=== PATIENT | female | born 1975 | race Two or more races ===

== ENCOUNTER 2018-03-07 10:29 | Emergency (ER) | payer MEDICAID ==
[2018-03-07 10:42] VITALS: BP 118/84
--- NOTE | 2018-03-07 10:49 | EDPHY ---
H & P Stated Complaint: Slipped in bathroom;hit head on wall; no LOC, noticed lac Time Seen by Provider: 03/07/18 10:49 HPI/ROS: CHIEF COMPLAINT: Scalp laceration HISTORY OF PRESENT ILLNESS: The patient presents the ED with complaints of a scalp laceration after she slipped and fell in the shower earlier today. The patient denies significant headache or neck pain. 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 She is not anticoagulated. The patient denies any neck pain, back pain, chest pain or difficulty breathing. She denies any antecedent palpitations. She has no acute neurologic complaints. REVIEW OF SYSTEMS: A comprehensive 10 point review of systems is otherwise negative aside from elements mentioned in the history of present illness. 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 - Social History Smoking Status: Never smoked - Physical Exam Exam: General Appearance: Alert, no distress Head: 3 cm scalp laceration noted, no galea involvement, no significant hematoma Eyes: Pupils equal, round, reactive ENT, Mouth: No hemotympanum, no oral trauma Neck: Nontender, trachea midline Respiratory: Clear to auscultation bilaterally Cardiovascular: Regular rate and rhythm Abdomen: Abdomen is soft and nontender, pelvis stable Skin: No lacerations, No abrasion Back: No midline T/L/S pain Extremities: Nontender, full range of motion Neurological: A&Ox3, normal motor function, normal sensory exam, GCS 15 Constitutional: Initial Vital Signs Temperature (C) 36.5 C 03/07/18 10:35 Heart Rate 84 03/07/18 10:35 Respiratory Rate 18 03/07/18 10:35 Blood Pressure 118/84 H 03/07/18 10:35 O2 Sat (%) 99 03/07/18 10:35 O2 Delivery Mode Room Air Allergies/Adverse Reactions: No Known Allergies Allergy (Unverified 03/07/18 10:42) Home Medications: Medication Instructions Recorded Amoxicillin Trihydrate 500 mg PO TID 03/07/18 [Amoxicillin] predniSONE 5 mg PO 03/07/18 Medical Decision Making Procedures: Procedure: Laceration repair. Verbal consent was obtained from the patient. The 3 cm laceration on the scalp was anesthetized using lidocaine with epinephrine. The wound was irrigated per protocol, draped and explored to its base with a gloved finger. The wound was repaired with zeinab. The wound repair was simple. The procedure was performed by myself. ED Course/Re-evaluation: The patient presents to the ED with a simple scalp laceration. There is no evidence of a closed head injury or concussion. The patient's laceration was closed with zeinab. She will be return to the ED in 10 days for staple removal. She is discharged home with customary aftercare instructions and return precautions. Departure - Departure Disposition: Home, Routine, Self-Care Clinical Impression: Scalp laceration Condition: Good Instructions: Care For Your Stitches (ED) Additional Instructions: 1. Return to the ED in 10 days for suture removal. 2. Return to the ED for severe headache, abnormal behavior, numbness, weakness or other concerns.
== END 2018-03-07 11:18 | disposition home or self-care (01) ==
PROC: 0HQ0XZZ Repair Scalp Skin, External Approach (ICD-10-PCS; principal; 2018-03-07)
DX: S01.01XA Laceration without foreign body of scalp, initial encounter (principal); W18.2XXA Fall in (into) shower or empty bathtub, initial encounter